=== PATIENT | male | born 1980 | race Hispanic/Latino ===

== ENCOUNTER 2017-05-18 08:08 | Emergency (ER) | payer OTHER ==
[2017-05-18 08:13] VITALS: BMI 29.8
[2017-05-18 08:18] VITALS: RESP 18; TEMP 97.6; O2SAT 100
[2017-05-18] MEDS ORDERED: Sodium Chloride 0.9% 1,000 ML IV STA (08:23)
--- NOTE | 2017-05-18 08:26 | ED PDOC ---
Arrival/HPI - General Chief Complaint: Male Genitourinary Time Seen by Provider: 05/18/17 08:11 Historian: Patient - History of Present Illness Narrative History of Present Illness (Text): 05/18/17 08:11 Skinny Richard is a 37 year old male, whose past medical history includes a cholecystectomy, who presents to the emergency department complaining of right flank pain since 02:00 this morning. Patient notes that this episode is similar to previous kidney stones. Patient describes his pain is constant and severe radiating from his right flank to right groin, not relieved by any position. Patient states that he took 3 500mg tablets of Naproxen prior to arrival. Patient denies any fever, chills, chest pain, shortness of breath, nausea, vomiting, diarrhea, urinary symptoms, back pain, neck pain, headache, dizziness , or any other complaints. Time/Duration: 4-6 hours Symptom Onset: Gradual Symptom Course: Unchanged Severity Level: Mild Activities at Onset: Rest Context: Home Past Medical History - Provider Review Nursing Documentation Reviewed: Yes - Infectious Disease Hx of Infectious Diseases: None - Psychiatric Hx Substance Use: No - Anesthesia Hx Anesthesia Reactions: No Hx Malignant Hyperthermia: No Family/Social History - Physician Review Nursing Documentation Reviewed: Yes Family/Social History: No Known Family HX Smoking Status: Never Smoked Hx Alcohol Use: Yes Frequency of alcohol use: Socially Hx Substance Use: No Allergies/Home Meds Allergies/Adverse Reactions: Allergies No Known Allergies Allergy (Verified 05/18/17 08:13) Review of Systems - Physician Review All systems were reviewed & negative as marked: Yes - Review of Systems Constitutional: absent: Fevers, Night Sweats Eyes: absent: Vision Changes ENT: absent: Hearing Changes Respiratory: absent: SOB, Cough Cardiovascular: absent: Chest Pain Gastrointestinal: absent: Abdominal Pain Musculoskeletal: Back Pain (right sided flank pain) Skin: absent: Rash, Pruritis Neurological: absent: Headache Endocrine: absent: Diaphoresis Hemo/Lymphatic: absent: Adenopathy Psychiatric: absent: Anxiety, Depression Physical Exam - Physical Exam Narrative Physical Exam (Text): Constitutional: No acute distress. Head: Normocephalic. Atraumatic. Eyes: PERRL. ENT: Moist mucous membranes. Neck: Supple. Cardiovascular: Regular rate. Chest: No tenderness. Respiratory: Clear to auscultation bilaterally. GI: Soft. Nontender. Nondistended. Back: No CVA tenderness. Musculoskeletal: No tenderness or swelling of extremities. Skin: No rash. Neurologic: Alert, no focal deficit. Vital Signs Reviewed: Yes Vital Signs Temp Pulse Resp BP Pulse Ox 05/18/17 10:12 45 L 18 117/64 100 05/18/17 08:08 97.6 F 57 L 18 149/62 100 Temperature: Afebrile Blood Pressure: Normal Pulse: Bradycardic Respiratory Rate: Normal Appearance: Positive for: Well-Appearing, Non-Toxic, Uncomfortable Pain Distress: Moderate Mental Status: Positive for: Alert and Oriented X 3 Medical Decision Making ED Course and Treatment: 05/18/17 08:20 Impression: 37 year old male complaining of right flank pain since 02:00 this morning Differential Diagnosis included but are not limited to: Kidney Stone Plan: -- Abdomen and Pelvis CT w/o contrast -- Urinalysis -- Labs -- Tylenol, Zofran, Flomax, and IV Fluids -- Reassess and disposition Progress Notes: CT shows 5mm stone in midureter. Discharge patient on analgesia, Zofran, flomax , IVF. Drug registry with no prior entries. Discussed risk of addiction with patient. - Lab Interpretations Lab Results: 05/18/17 08:20 05/18/17 08:20 Lab Results 05/18/17 08:20: Sodium 139, Potassium 3.7, Chloride 101, Carbon Dioxide 28, Anion Gap 14, BUN 12, Creatinine 1.1, Est GFR ( Amer) > 60, Est GFR (Non- Af Amer) > 60, Random Glucose 96, Calcium 9.3, Total Bilirubin 1.0, AST 21, ALT 30, Alkaline Phosphatase 82, Total Protein 7.5, Albumin 4.0, Globulin 3.5, Albumin/Globulin Ratio 1.1 05/18/17 08:20: WBC 10.4, RBC 4.98, Hgb 15.3, Hct 44.6, MCV 89.6, MCH 30.7, MCHC 34.3, RDW 12.5, Plt Count 241, MPV 11.3 H, Gran % 77.9 H, Lymph % (Auto) 15.6 L, [place] % (Auto) 5.5, Eos % (Auto) 0.8 L, Baso % (Auto) 0.2, Gran # 8.14 H , Lymph # 1.6, Burnet # 0.6, Eos # 0.1, Baso # 0.02 - RAD Interpretation Radiology Orders: 05/18/17 08:24 ABD & PELVIS W/O PO OR IV CONT [CT] Stat - Medication Orders Current Medication Orders: Discontinued Medications Acetaminophen (Tylenol 325mg Tab) 975 mg PO STAT STA Stop: 05/18/17 08:24 Last Admin: 05/18/17 08:30 Dose: 975 mg Re-Assess: KIKI Pain/Vitals Document 05/18/17 09:30 SRE (Rec: 05/18/17 09:50 SRE [id number]) Pain Reassessment Is This A Pain ReAssessment? Yes Sleep Is patient sleeping during reassessment? No Sodium Chloride (Sodium Chloride 0.9%) 1,000 mls @ 999 mls/hr IV .Q1H1M STA Stop: 05/18/17 09:23 Last Admin: 05/18/17 08:32 Dose: 999 mls/hr Lidocaine 152 mg/ Sodium (Chloride) 107.6 mls @ 645.6 mls/hr IV STAT STA Stop: 05/18/17 09:30 Last Admin: 05/18/17 10:02 Dose: Ondansetron HCl (Zofran Inj) 8 mg IVP STAT STA Stop: 05/18/17 08:25 Last Admin: 05/18/17 08:31 Dose: 8 mg Oxycodone/Acetaminophen (Percocet 5/325 Mg Tab) 1 tab PO STAT STA Stop: 05/18/17 10:18 Last Admin: 05/18/17 10:26 Dose: 1 tab Tamsulosin HCl (Flomax) 0.4 mg PO STAT STA Stop: 05/18/17 08:24 Last Admin: 05/18/17 08:31 Dose: 0.4 mg - Scribe Statement The provider has reviewed the documentation as recorded by the Mandi Mondragon Provider Scribe Attestation: All medical record entries made by the Scribe were at my direction and personally dictated by me. I have reviewed the chart and agree that the record accurately reflects my personal performance of the history, physical exam, medical decision making, and the department course for this patient. I have also personally directed, reviewed, and agree with the discharge instructions and disposition. Disposition/Present on Arrival - Present on Arrival Any Indicators Present on Arrival: No History of DVT/PE: No History of Uncontrolled Diabetes: No Urinary Catheter: No History of Decub. Ulcer: No History Surgical Site Infection Following: None - Disposition Have Diagnosis and Disposition been Completed?: Yes Diagnosis: Kidney stone Disposition: HOME/ ROUTINE Disposition Time: 10:19 Patient Plan: Discharge Patient Problems: Current Active Problems Problem Status Onset Kidney stone Acute Condition: STABLE Discharge Instructions (ExitCare): Kidney Stones (ED) Prescriptions: Ibuprofen [Motrin] 600 mg PO Q6 #25 tab Ondansetron ODT [Zofran ODT] 4 mg PO Q8 #12 odt oxyCODONE/Acetaminophen [Percocet 5/325 mg Tab] 1 tab PO Q6 #10 tab Tamsulosin [Flomax] 0.4 mg PO DAILY #5 cap Referrals: PCP,NO [Primary Care Provider] - Follow up with primary Forms: WORK NOTE
[2017-05-18 08:35] LABS: BASO # 0.02 K/mm3 (0.0-2.0); BASO % 0.2 % (0.0-3.0); EOS # 0.1 (0.0-0.7); EOS % 0.8 % (1.5-5.0); GRAN # 8.14 (1.4-6.5); GRAN % 77.9 % (50.0-68.0); HEMOGLOBIN 15.3 gm/dL (14.0-18.0); LYMPH # 1.6 (1.2-3.4); LYMPH % 15.6 % (22.0-35.0); MEAN CELL VOLUME 89.6 fL (80.0-105.0); MEAN CORPUSCULAR HEMOGLOBIN 30.7 pg (25.0-35.0); MEAN CORPUSCULAR HGB CONC 34.3 g/dl (31.0-37.0); MEAN PLATELET VOLUME 11.3 fl (7.0-11.0); MONO # 0.6 (0.1-0.6); MONO % 5.5 % (1.0-6.0); PLATELET COUNT 241 10^3/uL (120.0-450.0); RBC 4.98 10^6/uL (3.5-6.1); RED CELL DISTRIBUTION WIDTH 12.5 % (11.5-14.5); WHITE BLOOD COUNT 10.4 10^3/ul (4.5-11.0)
[2017-05-18 08:44] LABS: ALB/GLOB RATIO 1.1 (1.1-1.8); ALT/SGPT 30 U/L (7-56); AST/SGOT 21 U/L (15-59); BLOOD UREA NITROGEN 12 mg/dL (7-21); CALCIUM 9.3 mg/dL (8.4-10.5); GFR AFRICAN-AMERICAN > 60; GFR NON-AFRICAN AMERICAN > 60
--- NOTE | 2017-05-18 09:22 | CT ---
PROCEDURE: CT Abdomen and Pelvis without intravenous contrast HISTORY: R flank pain COMPARISON: None. TECHNIQUE: Without contrast. Contrast Dose: Radiation dose: Total exam DLP = 1062 mGy-cm. This CT exam was performed using one or more of the following dose reduction techniques: Automated exposure control, adjustment of the mA and/or kV according to patient size, and/or use of iterative reconstruction technique. FINDINGS: LOWER THORAX: The lungs have a hyper expanded appearance LIVER: Unremarkable. No gross lesion or ductal dilatation. GALLBLADDER AND BILE DUCTS: Unremarkable. PANCREAS: Unremarkable. No gross lesion or ductal dilatation. SPLEEN: Unremarkable. ADRENALS: Unremarkable. No mass. KIDNEYS AND URETERS: There is a 5 mm stone in the mid right ureter seen on axial image 74 and coronal image 72. There is mild hydronephrosis. VASCULATURE: Unremarkable. No aortic aneurysm. BOWEL: Unremarkable. No obstruction. No gross mural thickening. APPENDIX: Unremarkable. Normal appendix. PERITONEUM: Unremarkable. No free fluid. No free air. There is a small fat containing umbilical hernia seen on image 79. LYMPH NODES: Unremarkable. No enlarged lymph nodes. BLADDER: Unremarkable. REPRODUCTIVE: Unremarkable. BONES: No acute fracture. OTHER FINDINGS: None. IMPRESSION: 5 mm stone in the right mid ureter with mild hydronephrosis
[2017-05-18] MEDS ORDERED: SODIUM CHLORIDE 0.9% IV STA (09:29)
[2017-05-18] MEDS ORDERED: LIDOCAINE IV STA (09:29)
[2017-05-18 10:13] VITALS: BP 117/64; PULSE 45
[2017-05-18] MEDS ORDERED: Oxycodone/Acetaminophen 5/325 mg Tab PO STA (10:17)
[2017-05-18 11:04] LABS: PH,URINE 7.5 (4.7-8.0); URINE BILIRUBIN NEGATIVE (NEGATIVE); URINE BLOOD LARGE (NEGATIVE); URINE GLUCOSE (UA) NEGATIVE (NEGATIVE); URINE LEUKOCYTE ESTERASE TRACE Leu/uL (NEGATIVE); URINE NITRATE NEGATIVE (NEGATIVE); URINE PROTEIN TRACE mg/dL (<30 mg/dL)
[2017-05-18 11:09] LABS: URINE APPEARANCE SL CLOUDY (CLEAR); URINE COLOR YELLOW (YELLOW)
[2017-05-18 11:16] LABS: URINE BACTERIA MOD (NEG); URINE RBC TNTC /hpf (0-2)
== END 2017-05-18 11:31 | disposition home or self-care (01) ==
LOC: ED 08:08
DX: N20.0 Calculus of kidney (principal)
CPT/HCPCS: 74176; 80053; 81001; 85025; 87086; 96361; 96374; 99285; J2405; J7040